=== PATIENT | male | born 1980 | race Caucasian/White ===

== ENCOUNTER 2021-06-13 07:15 | Inpatient (IN) | payer BC ==
[2021-06-13] MEDS ORDERED: fentaNYL 250 MCG/5 ML SDV ONE ×2 (07:20→11:57)
[2021-06-13] MEDS ORDERED: Propofol 200 MG/20 ML SDV ONE (07:21)
[2021-06-13] MEDS ORDERED: Glycopyrrolate 0.2 MG/ML 5 ML MDV ONE (07:21)
[2021-06-13] MEDS ORDERED: Succinylcholine 200 MG/10 ML MDV ONE (07:21)
[2021-06-13] MEDS ORDERED: Dexamethasone 4 MG/ML SDV ONE (07:21)
[2021-06-13] MEDS ORDERED: Neostigmine Methylsulfate 1 MG/ML 5 ML Syringe ONE (07:21)
[2021-06-13] MEDS ORDERED: Ondansetron 4 MG/2 ML SDV ONE (07:21)
[2021-06-13] MEDS ORDERED: Rocuronium 50 MG/5 ML Vial ONE ×3 (07:21→13:01)
[2021-06-13] MEDS ORDERED: Lactated Ringers 1,000 ML ONE ×2 (07:23→12:57)
[2021-06-13] MEDS ORDERED: cefOXitin 2 GM Vial ONE (07:23)
[2021-06-13] MEDS ORDERED: Scopolamine 1.5 MG Transdermal Patch TOP SCH (09:00)
[2021-06-13] MEDS ORDERED: Dextrose 5%-Lactated Ringers 1,000 ML IV SCH ×2 (09:15→15:45)
[2021-06-13] MEDS ORDERED: Celecoxib 200 MG Cap PO ONE (09:30)
[2021-06-13] MEDS ORDERED: cefOXitin 2 GM in Sodium Chloride 0.9% 50 ML IV ONE (10:00)
[2021-06-13] MEDS ORDERED: Ketamine 19 MG in Sodium Chloride 0.9% 19.81 ML IV SCH (10:30)
[2021-06-13] MEDS ORDERED: Ketamine 500 MG/5 ML MDV IV SCH (10:30)
[2021-06-13] MEDS ORDERED: Meropenem 500 MG SDV ONE ×2 (13:07→13:41)
[2021-06-13] MEDS ORDERED: Naloxone 0.4 MG/ML SDV IVPUSH PRN (13:34)
[2021-06-13] MEDS ORDERED: diphenhydrAMINE 25 MG Cap PO PRN (13:34)
[2021-06-13] MEDS ORDERED: HYDROmorphone/Normal Saline 15 MG/30 ML PCA IV PRN (13:34)
[2021-06-13] MEDS ORDERED: diphenhydrAMINE 50 MG/ML SDV IVPUSH PRN ×2 (13:34→16:00)
[2021-06-13] MEDS ORDERED: Naloxone 0.4 MG/ML SDV IV PRN (14:00)
[2021-06-13] MEDS ORDERED: hydrOXYzine HCL 100 MG/2 ML SDV IM ONE (14:49)
[2021-06-13] MEDS ORDERED: Calcium Gluconate 10% 1 GM/10 ML SDV IVPUSH PRN (15:29)
[2021-06-13] MEDS ORDERED: Cyclobenzaprine 10 MG Tab PO PRN (15:47)
[2021-06-13] MEDS ORDERED: Glucagon,Human Recombinant 1 MG Vial IM PRN (16:00)
[2021-06-13] MEDS ORDERED: Ondansetron 4 MG/2 ML SDV IVPUSH PRN (16:00)
[2021-06-13] MEDS ORDERED: 50% Dextrose in Water 50 ML Syringe IVPUSH PRN (16:00)
[2021-06-13] MEDS ORDERED: Labetalol 20 MG/4 ML Syringe IVPUSH PRN (16:00)
[2021-06-13] MEDS ORDERED: hydrOXYzine HCL 100 MG/2 ML SDV IM PRN (16:00)
[2021-06-13] MEDS ORDERED: Albuterol/Ipratropium 3.0-0.5 MG/3 ML Neb Soln INH PRN (16:00)
[2021-06-13] MEDS ORDERED: Metoclopramide 10 MG/2 ML SDV IVPUSH PRN (16:00)
[2021-06-13] MEDS ORDERED: Acetaminophen 500 MG Tab PO PRN (16:00)
[2021-06-13] MEDS: Lactated Ringers 1,000 ML IV SCH (16:03)
[2021-06-13] MEDS: Insulin Lispro 100 Unit/ML 3 ML KwikPen SUBCUT SCH ×2 (16:53→21:49)
[2021-06-13] MEDS ORDERED: MVI, Adult with Vitamin K 10 ML, Thiamine 200 MG, Zinc/Copper/Manganese/Selenium 1 ML i... IV SCH ×4 (17:00)
[2021-06-13] MEDS: Pantoprazole 40 MG Vial IVPUSH SCH (17:25)
[2021-06-13] MEDS: cefOXitin 2 GM in Sodium Chloride 0.9% 50 ML IV SCH ×2 (17:25→21:30)
[2021-06-13] MEDS: Heparin Sodium 5,000 Units/ML Vial SUBCUT SCH (21:25)
[2021-06-13] MEDS: ENTRESTO PO SCH (21:26)
[2021-06-13] MEDS: Acetaminophen 500 MG Tab PO SCH (21:30)
[2021-06-14] MEDS: Albuterol/Ipratropium 3.0-0.5 MG/3 ML Neb Soln INH SCH ×5 (00:29→20:05)
[2021-06-14] MEDS ORDERED: Iopamidol 612 MG/ML 50 ML SDV PO ONE (03:27)
[2021-06-14] MEDS: cefOXitin 2 GM in Sodium Chloride 0.9% 50 ML IV SCH ×3 (03:51→15:34)
[2021-06-14] MEDS: Heparin Sodium 5,000 Units/ML Vial SUBCUT SCH ×3 (03:52→20:05)
[2021-06-14] MEDS: Insulin Lispro 100 Unit/ML 3 ML KwikPen SUBCUT SCH ×4 (04:43→23:17)
[2021-06-14] MEDS: Lactated Ringers 1,000 ML IV SCH (08:18)
[2021-06-14] MEDS: Acetaminophen 500 MG Tab PO SCH (08:21)
[2021-06-14] MEDS: Celecoxib 200 MG Cap PO SCH ×2 (08:22→20:05)
[2021-06-14] MEDS: Metoprolol Succinate 50 MG Tab.ER PO SCH (08:22)
[2021-06-14] MEDS: SCOPOLAMINE PATCH CHECK TOP SCH (08:26)
[2021-06-14] MEDS: ENTRESTO PO SCH ×2 (08:26→20:06)
[2021-06-14] MEDS ORDERED: Lactated Ringers 1,000 ML IV SCH (08:45)
[2021-06-14] MEDS: DOCUSATE 100 MG/10 ML PO SCH ×2 (09:57→20:05)
[2021-06-14] MEDS: Bisacodyl 5 MG Tab PO SCH ×2 (09:57→20:05)
[2021-06-14] MEDS: Magnesium Sulfate/Water 2 GM in Premix Bag 1 BAG IV SCH ×2 (11:42→17:30)
[2021-06-14] MEDS: Acetaminophen 160 MG Tab,Disintegrating PO SCH ×2 (14:08→23:17)
[2021-06-14] MEDS ORDERED: MVI, Adult with Vitamin K 10 ML, Thiamine 200 MG, Zinc/Copper/Manganese/Selenium 1 ML i... IV SCH ×4 (16:00)
[2021-06-14] MEDS: Pantoprazole 40 MG Vial IVPUSH SCH (17:34)
[2021-06-14] MEDS: oxyCODONE 5 MG Tab PO PRN (21:13)
[2021-06-15] MEDS: Acetaminophen 160 MG Tab,Disintegrating PO SCH ×3 (05:15→21:47)
[2021-06-15] MEDS: oxyCODONE 5 MG Tab PO PRN ×2 (05:15→16:15)
[2021-06-15] MEDS: Insulin Lispro 100 Unit/ML 3 ML KwikPen SUBCUT SCH ×3 (05:15→16:16)
[2021-06-15] MEDS: Heparin Sodium 5,000 Units/ML Vial SUBCUT SCH ×3 (05:15→21:46)
[2021-06-15] MEDS: Albuterol/Ipratropium 3.0-0.5 MG/3 ML Neb Soln INH SCH ×4 (07:01→21:46)
[2021-06-15] MEDS ORDERED: Magnesium Hydroxide 400 MG/5 ML Susp 30 ML Cup PO ONE (08:30)
[2021-06-15] MEDS: ENTRESTO PO SCH ×2 (08:56→21:47)
[2021-06-15] MEDS: Celecoxib 200 MG Cap PO SCH ×2 (08:56→21:45)
[2021-06-15] MEDS: Bisacodyl 5 MG Tab PO SCH ×2 (08:56→21:46)
[2021-06-15] MEDS: SCOPOLAMINE PATCH CHECK TOP SCH (08:58)
[2021-06-15] MEDS: Metoprolol Succinate 50 MG Tab.ER PO SCH (08:58)
[2021-06-15] MEDS ORDERED: Cyanocobalamin (Vitamin B12) 1,000 MCG/ML SDV IM ONE (09:00)
[2021-06-15] MEDS: Docusate Sodium 100 MG Cap PO SCH ×2 (09:04→21:46)
[2021-06-15] MEDS ORDERED: Magnesium Hydroxide 400 MG/5 ML Susp 30 ML Cup PO PRN (11:00)
[2021-06-15] MEDS ORDERED: Pantoprazole 40 MG Delayed-Release Granules 1 Packet PO SCH (16:30)
[2021-06-16] MEDS: Heparin Sodium 5,000 Units/ML Vial SUBCUT SCH (05:34)
[2021-06-16] MEDS: Acetaminophen 160 MG Tab,Disintegrating PO SCH (05:35)
[2021-06-16] MEDS: Albuterol/Ipratropium 3.0-0.5 MG/3 ML Neb Soln INH SCH ×2 (07:27→10:35)
--- NOTE | 2021-06-16 07:53 | PN ---
DATE OF SERVICE: 06/15/2021 The patient has been afebrile with stable vital signs. Oral intake has been fairly good. Doing a step 2 diet for today. Blood sugars have come down nicely, however, in the 140s, off all medication. His bowels have moved . He continues to follow stimulation, and his IV did come out, and will continue the present pain medication. He did receive a couple of doses of the oxycodone overnight. in the morning, probable discharge home tomorrow. Arie Garcia MD /[id number]
[2021-06-16] MEDS: Bisacodyl 5 MG Tab PO SCH (09:43)
[2021-06-16] MEDS: ENTRESTO PO SCH (09:43)
[2021-06-16] MEDS: Docusate Sodium 100 MG Cap PO SCH (09:43)
[2021-06-16] MEDS: Metoprolol Succinate 50 MG Tab.ER PO SCH (09:44)
[2021-06-16] MEDS: Celecoxib 200 MG Cap PO SCH (09:44)
--- NOTE | 2021-06-16 09:46 | CR ---
[facility] HISTORY: Postbariatric surgery FINDINGS: Patient swallowed water-soluble contrast. Contrast quantity is suboptimal. Upright views of the abdomen show no evidence of extravasation or obstruction. There are surgical drains in the epigastric region and left upper quadrant IMPRESSION: Status post bariatric surgery No extravasation or obstruction seen
[2021-06-16] MEDS: oxyCODONE 5 MG Tab PO PRN (10:49)
--- NOTE | 2021-06-16 11:50 | PN ---
DATE OF SERVICE: 06/14/2021 The patient has been afebrile with stable vital signs. He is fairly alert this morning. The oral intake was around 200 mL without difficulty. Upper GI x-ray looks good. The operative findings and procedure were reviewed with the patient. The labs showed no major problems other than his creatinine has bumped up a little bit from right around 1 to 1.5, and magnesium is markedly low and this will be supplemented. I will discontinue the Accu- Cheks which are running satisfactorily and we will leave the IV rate running somewhat higher. Of note, his BNP is only 39, so we have a way to go as far as IV fluids. Arie Garcia MD /[id number]
--- NOTE | 2021-06-16 21:26 | DISCH ---
ADMISSION DIAGNOSES: 1. Morbid obesity. 2. BMI 63.4. 3. Cardiomyopathy. 4. Congestive heart failure. 5. Dyslipidemia. 6. Hypertension. 7. Gastroesophageal reflux disease. 8. Sleep apnea. 9. Hypothyroidism, Mitchell's. 10.Defibrillator placed 2014. DISCHARGE DIAGNOSES: Diagnostic laparoscopy turned to laparotomy with: 1. Open duodenal switch. 2. Needle liver biopsy. 3. Repair of paraesophageal diaphragmatic hernia. POSTOPERATIVE DIAGNOSES: 1. Morbid obesity. 2. Massive left inguinal hernia with large amount of colon in scrotum causing generalized distortion of the small bowel. 3. Marked hepatomegaly. 4. Paraesophageal diaphragmatic hernia. Date of procedure: 06/13/2021. Surgeon: Arie Garcia MD. HISTORY: Matt Sullivan is a pleasant 40-year-old male with longstanding history of morbid obesity and increasing comorbidities. After preoperative evaluation and discussion of possible risks and possible complications, he wished to proceed with surgical procedure. HOSPITAL COURSE: Pasquale had his surgery on 06/13/2021. Intraoperatively, he had a diagnostic laparoscopy, but it was turned to laparotomy and duodenal switch due to a massive left inguinal hernia that contained a large portion of the colon. Immediately postoperatively, no complications. Pain was managed. He did get up and ambulate and tolerated a step 1 diet. On postoperative day 2, he was started on a step 2 gastric bypass diet. His activity was good. Vital signs remained normal and pain was controlled. On postoperative day 3, he had a bowel movement. Activity was good. Vital signs were stable. He received a vitamin B12 injection and adequate education. He was able to be discharged to home. PHYSICAL EXAMINATION: GENERAL: Pasquale Sullivan is a pleasant 40-year-old male. VITAL SIGNS: Height is 5 feet 6 inches, weight is 393 pounds, BMI 63.4. TPR is 96.6, 80, 16. Blood pressure 147/82. HEENT: Negative. NECK: Supple. HEART: Regular rate and rhythm. LUNGS: Clear. ABDOMEN: Incision looks good. [place] intact. Abdominal binder is on. BERTO drains will be removed x2. EXTREMITIES: Without peripheral edema. DISPOSITION: Discharged to home. CONDITION: Stable and improving. FOLLOWUP: Followup appointment with Mae Baird PA-C, 06/24/2021 at 10 a.m. HOME MEDICATIONS: 1. Oxycodone 5 mg q.4 hours p.r.n. pain, #12. 2. Colace 100 mg p.o. b.i.d., #60. 3. Dulcolax 10 mg p.o. b.i.d., #60. 4. Milk of magnesia 30 mL take 1 daily p.r.n. constipation, 2 were sent home with patient. 5. He is to take Tylenol Extra Strength 500 mg p.o., take 2 every 8 hours for pain. 6. Entresto 49 mg/51 mg tablet 1 b.i.d. 7. Levothyroxine 150 mcg p.o. daily. 8. Metoprolol succinate 100 mg p.o. daily. 9. Celebrex 200 mg p.o. b.i.d. for 2 weeks. DIET: Step 2 gastric bypass diet for 30 days until 07/15/2021. Drink 8 to 10 glasses of water a day. ACTIVITY: No lifting greater than 10 pounds for 6 weeks. OTHER ACTIVITY: Walk 6 times daily inside your home. Driving: Do not drive for 1 week or while on narcotic pain medication. Shower/bathing: May shower. Keep operative site clean and dry. Wear abdominal binder for 6 weeks if tolerated. Notify provider if any fever, increased pain, swelling, redness, drainage, nausea, or vomiting. OTHER INSTRUCTIONS: Use incentive spirometer 10 times every hour while awake. /[id number]
--- NOTE | 2021-06-29 09:27 | OR ---
DATE OF PROCEDURE: 06/13/2021 SURGEON: Arie Garcia MD PREOPERATIVE DIAGNOSIS: Morbid obesity. POSTOPERATIVE DIAGNOSES: 1. Morbid obesity. 2. Massive left inguinal hernia with large amount of sigmoid colon, descending colon, and transverse colon within it prohibiting a laparoscopic approach to his bariatric surgery. 3. Marked hepatomegaly. 4. Paraesophageal diaphragmatic hernia. OPERATIVE PROCEDURES: Diagnostic laparoscopy converted to laparotomy with: 1. Open duodenal switch (38697). 2. Needle biopsy of left lobe of liver (52161). 3. Repair of paraesophageal diaphragmatic hernia (32692). ANESTHESIA: General. LIFE SCIENCES INSTRUCTOR: Mae Baird PA-C INDICATIONS FOR PROCEDURE: A 40-year-old male presenting with longstanding morbid obesity and increasingly significant comorbidities. After preoperative evaluation and discussion, he wished to proceed with a duodenal switch. Potential risks of procedure including bleeding, infection, injury to underlying viscera, or leaks from any GI tract anastomosis as well as possibility of cardiopulmonary, septic, or hemorrhagic complications leading to were discussed, and the patient wishes to proceed. DETAILS OF PROCEDURE: The patient was taken to the operating room after general endotracheal anesthesia was induced. He was placed in a lithotomy position. He was noted to have a massive inguinal hernia on the left side, which was not reducible and will likely need to be repaired sometime in the future. After the abdomen was prepped and draped, a transverse incision was made 15 cm inferior and 5 cm left of the xiphoid process. Transverse incision made. Peritoneal cavity entered under direct vision with an Optiview trocar. Bilateral transversus abdominis plane blocks were then placed, and additional 5 trocars were placed across the upper and mid abdomen. The patient was noted to have marked hepatomegaly with liver volume being grossly fatty infiltrated. Vijay-Cut needle biopsies were obtained from left lobe of liver. Minimal bleeding from the biopsy site was controlled with electrocautery. At this point, we endeavored to map out the small bowel in order to ascertain whether or not the small bowel would adequately reach the duodenum on today's procedure versus needing to be done as a secondary procedure in terms of duodenal ileostomy after initial sleeve gastrectomy as a separate staged procedure. It was noted that the omentum and transverse colon were heading from the mid to right abdomen directly downwards into the area of the hernia. This resulted in occlusion of an open view of the area of proximal small bowel and ligament of Treitz, and this would be the central landmark in terms of mapping out the small bowel. Given this, decision was made to proceed with an open approach. After the trocars were removed, midline incision was made and carried down through the full- thickness of abdominal wall. Upon entering the peritoneal cavity, the small bowel was once again examined. At this point, we were able to by manual exam identify the ligament of Treitz to make sure that we were not getting into some harm's way with especially short small bowel. Small bowel was then traced back from the ileocecal valve 300 cm, and stitch placed there to help towards marking. At this point, the omentum was taken down at the beginning of the greater curvature of stomach, progressing proximally to include the short gastric and highest short gastric vessels. This would be done with Harmonic scalpel, and we then were able to skeletonize the area of the esophagogastric junction on the left side away from the fundus. The patient was noted to have an element of paraesophageal diaphragmatic hernia. This was reduced, and the posterior crural repair was then accomplished using 0 Ethibond sutures with PTFE pledgets. The dissection then continued distally to a point 4 cm distal to the duodenum, and this area all appeared to be relatively undiseased. At this point, the duodenum was divided 4 cm distal to the pylorus with CARISA purple reinforced load. Some of the omental tissue near the area superior to the proximal duodenum and pylorus was divided with a CARISA stapler as well, which allowed drop down of the duodenum with stay sutures between the small bowel 300 cm proximal to the duodenum and divided the proximal duodenum superiorly and inferiorly with 3-0 Vicryl stitches placed. Enterotomies were then placed in the duodenum and adjacent jejunum, and a 2 layered hand-sewn Vicryl anastomosis was accomplished. Initially, the posterior outer seromuscular layer was placed and the posterior full-thickness layer followed by anterior full-thickness layer; and finally, the initial suture was continued around the corners and continued as the anterior seromuscular layer. This anastomosis was reinforced with 3-0 Vicryl with fibrin sealant. The sleeve gastrectomy at that point had been accomplished with division of the antrum with the CARISA stapler using black loads approximating the incisura angularis with care to avoid overtightening, and completion of the sleeve gastrectomy with reinforced black loads with a 40-Swazi chest tube placed along the lesser curvature as a template for the level of the division. The stomach specimen was removed at this point, and the fibrin sealant was placed along the stomach staple line as well focusing on the gastroesophageal junction. Omentum was then tacked up into that area as well with 3-0 Vicryl stitch. The abdomen was irrigated with antibiotic-containing saline solution after the air was injected into the chest tube, which resulted in the leak test showing no air bubbles or leakage and good flow of air through the duodenum. The chest tube was removed at that point. The midline fascia was then approximated with #2 Vicryl stitch, subcutaneous tissue with 3 layers of 3-0 and 4-0 Vicryl stitch deep, and skin with chetan. Dressing was applied. Kulwinder-Ferguson drain had been placed through a stab wound through one of the left lateral trocar sites and sutured to the skin with 3-0 Vicryl stitch, and the patient was taken to the recovery room in satisfactory condition. Physician contact center assistant, Mae Baird, played an essential role in assisting in this case, helping to position the patient, and retract structures as needed, as well as suturing and cutting sutures when indicated. Her presence improved patient safety and decreased operative time. Arie Garcia MD /[id number]
== END 2021-06-16 11:45 | disposition home or self-care (01) | DRG 403 ==
LOC: EDSTATUS 07:15 → JP.SDS 08:44 → JP.MS 14:45
PROVIDERS: ADMIT Surgery; ATTEND Surgery
PROC: 0D190ZB Bypass Duodenum to Ileum, Open Approach (ICD-10-PCS; principal; 2021-06-13)
PROC: 0BQT0ZZ Repair Diaphragm, Open Approach (ICD-10-PCS; 2021-06-13)
PROC: 0FB24ZX Excision of Left Lobe Liver, Percutaneous Endoscopic Approach, Diagnostic (ICD-10-PCS; 2021-06-13)
PROC: 0DJD4ZZ Inspection of Lower Intestinal Tract, Percutaneous Endoscopic Approach (ICD-10-PCS; 2021-06-13)
DX: E66.01 Morbid (severe) obesity due to excess calories (principal); Z68.44 Body mass index [BMI] 60.0-69.9, adult; I42.9 Cardiomyopathy, unspecified; I50.9 Heart failure, unspecified; E78.5 Hyperlipidemia, unspecified; I11.0 Hypertensive heart disease with heart failure; K21.9 Gastro-esophageal reflux disease without esophagitis; G47.30 Sleep apnea, unspecified; E03.9 Hypothyroidism, unspecified; E06.3 Autoimmune thyroiditis; K44.9 Diaphragmatic hernia without obstruction or gangrene; R16.0 Hepatomegaly, not elsewhere classified; Z53.31 Laparoscopic surgical procedure converted to open procedure
CPT/HCPCS: 36415; 74240; 74240-26; 80053; 82947; 83735; 83880; 84100; 85025; 86850; 86900; 86901; 88307; 88313; 94640; A9270-GY; C9113; J0171; J0330; J0694; J1100; J1170; J1644; J2185; J2405; J2704; J2710; J2795; J3010; J3410; J3411; J3420; J3475; J3490; J7120; J7121; J7620-GY; Q9967

== ENCOUNTER 2022-01-22 09:52 | Inpatient (IN) | payer BC ==
[~2022-01-22 09:52] MED LIST: Dexamethasone 4 MG/ML SDV ONE; Glycopyrrolate 0.2 MG/ML 5 ML MDV ONE; Neostigmine Methylsulfate 1 MG/ML 5 ML Syringe ONE; Ondansetron 4 MG/2 ML SDV ONE; Propofol 200 MG/20 ML SDV ONE; Rocuronium 50 MG/5 ML Vial ONE; Succinylcholine 200 MG/10 ML MDV ONE; fentaNYL 250 MCG/5 ML SDV ONE
[2022-01-22] MEDS ORDERED: Acetaminophen 500 MG Tab PO ONE (10:15)
[2022-01-22] MEDS ORDERED: Celecoxib 200 MG Cap PO ONE (10:15)
[2022-01-22] MEDS ORDERED: Lidocaine 1% with EPINEPHrine 1:100,000 50 ML MDV ONE (11:20)
[2022-01-22] MEDS ORDERED: Bupivacaine 0.5%/EPINEPHrine 1:200,000 50 ML MDV ONE (11:20)
[2022-01-22] MEDS ORDERED: Bupivacaine 0.5% 30 ML SDV ONE (11:20)
[2022-01-22] MEDS: Dextrose 5%-Lactated Ringers 1,000 ML IV SCH ×3 (11:20→23:28)
[2022-01-22] MEDS ORDERED: cefOXitin 2 GM in Sodium Chloride 0.9% 50 ML IV ONE (11:30)
[2022-01-22] MEDS ORDERED: Ketamine 19 MG in Sodium Chloride 0.9% 19.81 ML IV SCH (11:45)
[2022-01-22] MEDS ORDERED: Ketamine 500 MG/5 ML MDV IV SCH (11:45)
[2022-01-22] MEDS ORDERED: Meropenem 500 MG SDV ONE (12:28)
[2022-01-22] MEDS ORDERED: Linezolid 600 MG/300 ML Premix Bag IRR ONE (12:52)
[2022-01-22] MEDS ORDERED: Lactated Ringers 1,000 ML ONE (13:06)
[2022-01-22] MEDS ORDERED: Rocuronium 50 MG/5 ML Vial ONE (13:19)
[2022-01-22] MEDS ORDERED: fentaNYL 100 MCG/2 ML SDV ONE (13:25)
[2022-01-22] MEDS ORDERED: diphenhydrAMINE 50 MG/ML SDV IVPUSH PRN ×2 (14:12→16:00)
[2022-01-22] MEDS ORDERED: Ondansetron 4 MG/2 ML SDV IVPUSH PRN ×2 (14:12→16:00)
[2022-01-22] MEDS ORDERED: Naloxone 0.4 MG/ML SDV IVPUSH PRN (14:12)
[2022-01-22] MEDS ORDERED: HYDROmorphone/Normal Saline 6 MG/30 ML PCA Vial IV PRN (14:12)
[2022-01-22] MEDS ORDERED: diphenhydrAMINE 25 MG Cap PO PRN (14:12)
[2022-01-22] MEDS ORDERED: Cyclobenzaprine 10 MG Tab PO PRN (15:50)
[2022-01-22] MEDS ORDERED: hydrOXYzine HCL 100 MG/2 ML SDV IM PRN (16:00)
[2022-01-22] MEDS ORDERED: Labetalol 20 MG/4 ML Syringe IVPUSH PRN (16:00)
[2022-01-22] MEDS ORDERED: Metoclopramide 10 MG/2 ML SDV IVPUSH PRN (16:00)
[2022-01-22] MEDS ORDERED: Naloxone 0.4 MG/ML SDV IV PRN (16:00)
[2022-01-22] MEDS ORDERED: Acetaminophen 500 MG Tab PO PRN (16:00)
[2022-01-22] MEDS ORDERED: MVI, Adult with Vitamin K 10 ML, Thiamine 200 MG, Zinc/Copper/Manganese/Selenium 1 ML i... IV SCH ×4 (16:00)
[2022-01-22] MEDS ORDERED: Heparin Sodium 5,000 Units/ML Vial SUBCUT SCH (18:00)
[2022-01-22] MEDS ORDERED: Pantoprazole 40 MG Vial IVPUSH SCH (18:00)
[2022-01-22] MEDS: cefOXitin 2 GM in Sodium Chloride 0.9% 50 ML IV SCH (18:01)
[2022-01-22] MEDS: Acetaminophen 500 MG Tab PO SCH (18:16)
[2022-01-22] MEDS ORDERED: ENTRESTO PO SCH (21:00)
[2022-01-23] MEDS: cefOXitin 2 GM in Sodium Chloride 0.9% 50 ML IV SCH ×5 (00:35→23:35)
[2022-01-23] MEDS: Acetaminophen 500 MG Tab PO SCH ×3 (02:52→17:47)
[2022-01-23] MEDS ORDERED: Iopamidol 612 MG/ML 50 ML SDV PO STA (02:55)
[2022-01-23] MEDS: Dextrose 5%-Lactated Ringers 1,000 ML IV SCH (05:40)
[2022-01-23] MEDS: Levothyroxine 25 MCG Tab PO SCH (07:18)
[2022-01-23] MEDS: Levothyroxine 112 MCG Tab PO SCH (07:18)
[2022-01-23] MEDS: Heparin Sodium 5,000 Units/ML Vial SUBCUT SCH ×3 (08:37→23:35)
[2022-01-23] MEDS: Metoprolol Succinate 50 MG Tab.ER PO SCH (09:35)
[2022-01-23] MEDS: ENTRESTO PO SCH ×2 (11:24→20:58)
[2022-01-23] MEDS: Pantoprazole 40 MG Delayed-Release Granules 1 Packet PO SCH (15:33)
[2022-01-23] MEDS ORDERED: MVI, Adult with Vitamin K 10 ML, Thiamine 200 MG, Zinc/Copper/Manganese/Selenium 1 ML i... IV SCH ×4 (16:00)
[2022-01-24] MEDS: Acetaminophen 500 MG Tab PO SCH ×3 (02:21→17:21)
[2022-01-24] MEDS: Dextrose 5%-Lactated Ringers 1,000 ML IV SCH ×2 (02:36→10:54)
[2022-01-24] MEDS: cefOXitin 2 GM in Sodium Chloride 0.9% 50 ML IV SCH (05:55)
[2022-01-24] MEDS ORDERED: Meropenem 500 MG SDV ONE (06:35)
[2022-01-24] MEDS ORDERED: Lidocaine 1% with EPINEPHrine 1:100,000 50 ML MDV ONE (06:35)
[2022-01-24] MEDS ORDERED: Bupivacaine 0.5% 30 ML SDV ONE (06:35)
[2022-01-24] MEDS ORDERED: Propofol 200 MG/20 ML SDV ONE ×2 (07:45)
[2022-01-24] MEDS ORDERED: Ketoconazole 2% Crm 30 GM Tube ONE (07:46)
[2022-01-24] MEDS: Levothyroxine 25 MCG Tab PO SCH (08:40)
[2022-01-24] MEDS: Levothyroxine 112 MCG Tab PO SCH (08:41)
[2022-01-24] MEDS: Heparin Sodium 5,000 Units/ML Vial SUBCUT SCH ×2 (08:42→16:08)
[2022-01-24] MEDS: Cyanocobalamin (Vitamin B12) 1,000 MCG/ML SDV IM ONE ×2 (09:34→09:40)
[2022-01-24] MEDS: Metoprolol Succinate 50 MG Tab.ER PO SCH (09:36)
[2022-01-24] MEDS: ENTRESTO PO SCH ×2 (09:36→20:55)
[2022-01-24] MEDS ORDERED: HYDROmorphone 2 MG Tab PO PRN (10:44)
[2022-01-24] MEDS: Pantoprazole 40 MG Delayed-Release Granules 1 Packet PO SCH (16:08)
[2022-01-25] MEDS: Heparin Sodium 5,000 Units/ML Vial SUBCUT SCH ×2 (00:40→07:27)
[2022-01-25] MEDS: Acetaminophen 500 MG Tab PO SCH ×2 (01:40→10:09)
[2022-01-25] MEDS: Levothyroxine 25 MCG Tab PO SCH (07:25)
[2022-01-25] MEDS: Levothyroxine 112 MCG Tab PO SCH (07:27)
[2022-01-25] MEDS: ENTRESTO PO SCH (08:39)
[2022-01-25] MEDS: Metoprolol Succinate 50 MG Tab.ER PO SCH (08:40)
== END 2022-01-25 13:10 | disposition home or self-care (01) | DRG 221 ==
LOC: JP.SDSSCHI 09:52 → JP.SDS 09:52 → EDSTATUS 14:15 → JP.MS 15:22
PROVIDERS: ADMIT Surgery; ATTEND Surgery
PROC: 0DTF0ZZ Resection of Right Large Intestine, Open Approach (ICD-10-PCS; principal; 2022-01-22)
PROC: 0YQ60ZZ Repair Left Inguinal Region, Open Approach (ICD-10-PCS; 2022-01-22)
PROC: 0D1E0ZP Bypass Large Intestine to Rectum, Open Approach (ICD-10-PCS; 2022-01-22)
PROC: 0DBU0ZZ Excision of Omentum, Open Approach (ICD-10-PCS; 2022-01-22)
PROC: 0WQF0ZZ Repair Abdominal Wall, Open Approach (ICD-10-PCS; 2022-01-24)
DX: K40.30 Unilateral inguinal hernia, with obstruction, without gangrene, not specified as recurrent (principal); E66.01 Morbid (severe) obesity due to excess calories; E03.9 Hypothyroidism, unspecified; E78.5 Hyperlipidemia, unspecified; G47.33 Obstructive sleep apnea (adult) (pediatric); I42.8 Other cardiomyopathies; E11.9 Type 2 diabetes mellitus without complications; I11.0 Hypertensive heart disease with heart failure; I50.22 Chronic systolic (congestive) heart failure; Z79.890 Hormone replacement therapy; Z79.899 Other long term (current) drug therapy; Z98.84 Bariatric surgery status; Z95.810 Presence of automatic (implantable) cardiac defibrillator; Z68.41 Body mass index [BMI] 40.0-44.9, adult
CPT/HCPCS: 74240; 74240-26; 88302; 88305; 88307; A9270-GY; C1713; C9113; J0171; J0330; J0694; J1100; J1170; J1644; J2020; J2185; J2405; J2704; J2710; J2795; J3010; J3411; J3420; J3490; J7120; J7121; Q9967